=== PATIENT | male | born 1950 | race Caucasian/White ===

== ENCOUNTER 2019-03-27 15:34 | Emergency (ER) | payer MEDICARE, OTHER | END 2019-03-27 16:45 | disposition home or self-care (01) | LOC: E/R 15:34 | DX: L73.9 Follicular disorder, unspecified (principal); I10 Essential (primary) hypertension; E03.9 Hypothyroidism, unspecified | CPT/HCPCS: 99283 ==

== ENCOUNTER 2019-03-29 21:41 | Emergency (ER) | payer MEDICARE, OTHER ==
[2019-03-29] MEDS: IBUPROFEN 600 MG TAB PO (22:41)
[2019-03-29] MEDS: LIDOCAINE 2% (MDV) 20 ML INJ INJ (23:00)
== END 2019-03-30 00:37 | disposition home or self-care (01) ==
LOC: FTE 03-30 00:37
DX: L02.214 Cutaneous abscess of groin (principal); I10 Essential (primary) hypertension
CPT/HCPCS: 10060; 99282-25

== ENCOUNTER 2019-03-31 21:58 | Emergency (ER) | payer MEDICARE, OTHER | END 2019-03-31 22:55 | disposition home or self-care (01) | LOC: FTE 22:55 | DX: Z48.01 Encounter for change or removal of surgical wound dressing (principal); I10 Essential (primary) hypertension | CPT/HCPCS: 99282 ==